=== PATIENT | female | born 1995 | race Caucasian/White ===

== ENCOUNTER 2021-01-11 08:20 | Day surgery (SDC) | payer OTHER ==
[~2021-01-11] VITALS: Ht 147.3 cm; Wt 83.9 kg
[2021-01-11 08:51] VITALS: BP 125/82; PULSE 90; TEMP 97.7
[2021-01-11] MEDS ORDERED: AMBIEN 5MG TABLE5 MG PO (09:03)
[2021-01-11] MEDS ORDERED: VRAYLAR1.5 MG PO (09:07)
[2021-01-11] MEDS ORDERED: ADDERALL20 MG PO (09:08)
[2021-01-11] MEDS ORDERED: XANAX 0.5MG0.5 MG PO (09:08)
[2021-01-11] MEDS ORDERED: LINZESS145CAP PO (09:09)
[2021-01-11 10:00] VITALS: BP 103/61; PULSE 83; TEMP 97.8
--- NOTE | 2021-01-11 10:00 | NUR ---
TO BAY 7 PER CART FROM ENDOSCOPY. DROWSY UPON ARRIVAL TO TALKING TO STAFF AND . AMBULATED TO RECLINER WITH ASSIST.
[2021-01-11 10:15] VITALS: BP 109/78; PULSE 81
--- NOTE | 2021-01-11 10:15 | NUR ---
RECEIVED GRETEL AND LOVELY. SITTING UP TALKING WITH .
--- NOTE | 2021-01-11 10:25 | NUR ---
DR BANSAL INTO TALK WITH PATIENT AND .
[2021-01-11 10:45] VITALS: BP 98/71; PULSE 78
--- NOTE | 2021-01-11 10:45 | NUR ---
RECEIVED DISCHARGE INSTRUCTIONS AND VERBALIZED UNDERSTANDING. DISCONTINUED IV AND INT- CATHETER INTACT. PATEINT GETTING DRESSED.
--- NOTE | 2021-01-11 10:50 | NUR ---
DISCHARGED PER WC BY NURSING STAFF TO PRIVATE CAR IN CARE OF KURTIS.
== END 2021-01-11 10:58 | disposition home or self-care (01) ==
LOC: SDCO 08:20
DX: K92.1 Melena (principal); K62.89 Other specified diseases of anus and rectum; K59.00 Constipation, unspecified; K64.1 Second degree hemorrhoids; K60.1 Chronic anal fissure; F31.9 Bipolar disorder, unspecified; F43.10 Post-traumatic stress disorder, unspecified; F41.9 Anxiety disorder, unspecified; F17.200 Nicotine dependence, unspecified, uncomplicated; Z20.822 Contact with and (suspected) exposure to COVID-19; Z79.899 Other long term (current) drug therapy; Z91.048 Other nonmedicinal substance allergy status
CPT/HCPCS: J2250; J2405; J2704; J7030